=== PATIENT | male | born 1975 | race Caucasian/White ===

== ENCOUNTER 2023-06-24 11:04 | Inpatient (IN) | payer BC ==
[2023-06-24 12:01] LABS: #Basophils 0.1 thou/uL (0.0-0.2); #Eosinphils 0.5 thou/uL (0.0-0.7); #Monocytes 0.9 thou/uL (0.11-0.59); #Neutrophils 9.8 thou/uL (1.40-6.50); %Basophils 0.4 % (0.0-1.0); %Lymphocytes 14.4 % (21.0-51.0); %Monocytes 6.7 % (0.0-10.0); %Neutrophils 74.1 % (42.0-75.0); Hematocrit 43.9 % (42.0-52.0); Hemoglobin 15.4 g/dL (14.0-18.0); Mean Corpuscular HGB CONC 35.1 g/dL (32.0-36.0); Mean Corpuscular Hemoglobin 30.3 pg (27.0-31.0); Mean Corpuscular Volume 86.4 fl (78.0-98.0); Mean Platelet Volume 9.3 fL (7.4-10.4); Platelet Count 258 10x3/uL (130-400); RBC Distribution Width 12.6 % (11.5-14.5); Red Blood Cell (RBC) Count 5.08 mill/uL (4.70-6.10); White Blood Cell (WBC) Count 13.2 10x3/uL (4.8-10.8)
[2023-06-24 12:26] LABS: ALT (SGPT) 35 U/L (8-55); AST (SGOT) 23 U/L (5-34); Albumin 4.6 g/dL (3.5-5.0); Alkaline Phosphatase 75 U/L (40-110); Anion Gap 14 mmol/L (10-20); BUN (Urea Nitrogen) 10 mg/dL (8.9-20.6); Bilirubin, Total 0.5 mg/dL (0.2-1.2); Calc. Creatinine Clearance 0 mL/min (70-130); Calcium 9.9 mg/dL (7.8-10.44); Carbon Dioxide 24 mmol/L (22-29); Chloride 104 mmol/L (98-107); Estimated GFR 112; Globulin 2.8 g/dL (2.4-3.5); Glucose 97 mg/dL (70-105); Magnesium 2.3 mg/dL (1.6-2.6); Potassium 4.2 mmol/L (3.5-5.1); Protein, Total 7.4 g/dL (6.0-8.3); Sodium 138 mmol/L (136-145)
[2023-06-24] MEDS ORDERED: Senokot S 8.6-50 MG TAB PO PRN (15:19)
[2023-06-24] MEDS ORDERED: Acetaminophen 325 MG TAB PO PRN (15:19)
[2023-06-24] MEDS ORDERED: Calcium Carbonate 500 MG ChewTAB PO PRN (15:19)
[2023-06-24] MEDS ORDERED: Ondansetron PF 4 MG/2 ML Vial IVP PRN (15:19)
[2023-06-24 21:00] LABS: SARS-CoV-2 NAA Rapid Test Not Detected (NotDetected)
[2023-06-24] MEDS: Zolpidem Tartrate 5 MG TAB PO PRN (21:39)
[2023-06-24] MEDS: Atorvastatin Calcium 40 MG TAB PO SCH (21:40)
[2023-06-24] MEDS: Simethicone Chewable 80 MG TAB PO SCH (21:40)
[2023-06-24 23:46] LABS: Bacteria/HPF None Seen HPF (None Seen); Bilirubin Negative (Negative); Blood, Urine Negative (Negative); CAUTI Indications for Culture Spinal Cord Injury; Clarity Turbid (Clear); Glucose, Urine (Dipstick) Normal (Negative); Ketone, Urine Negative (Negative); Leukocyte Negative Leu/uL (Negative); Nitrite Negative (Negative); Protein, Urine (Dipstick) Negative (Neg-Trace); RBC/HPF 0-3 HPF (0-3); Specific Gravity, Urine 1.013 (1.002-1.036); Squamous Epithelial None Seen HPF (0-3); Urobilinogen Normal mg/dL (Less than 2); WBC/HPF None Seen HPF (0-3); pH, Urine 7.5 (5.0-9.0)
[2023-06-24 23:53] LABS: Sperm/HPF 1+ HPF (None Seen); Urine Culture Reflex No No
[2023-06-25 05:06] LABS: #Basophils 0.1 thou/uL (0.0-0.2); #Eosinphils 0.7 thou/uL (0.0-0.7); #Neutrophils 7.8 thou/uL (1.40-6.50); %Basophils 0.4 % (0.0-1.0); %Eosinophils 5.8 % (0.0-10.0); %Lymphocytes 18.1 % (21.0-51.0); %Monocytes 8.6 % (0.0-10.0); %Neutrophils 66.7 % (42.0-75.0); Hematocrit 42.5 % (42.0-52.0); Hemoglobin 14.6 g/dL (14.0-18.0); Mean Corpuscular HGB CONC 34.4 g/dL (32.0-36.0); Mean Corpuscular Hemoglobin 30.2 pg (27.0-31.0); Mean Platelet Volume 9.2 fL (7.4-10.4); Platelet Count 234 10x3/uL (130-400); RBC Distribution Width 12.5 % (11.5-14.5); Red Blood Cell (RBC) Count 4.83 mill/uL (4.70-6.10); White Blood Cell (WBC) Count 11.7 10x3/uL (4.8-10.8)
[2023-06-25 05:19] LABS: Hemoglobin A1c 4.8 % (4.0-6.0)
[2023-06-25 05:36] LABS: CRP (Inflammatory) Less than 0.50 mg/dL (= or < 0.5); Phosphorus 4.1 mg/dL (2.3-4.7)
[2023-06-25 05:42] LABS: ALT (SGPT) 31 U/L (8-55); AST (SGOT) 21 U/L (5-34); Albumin 4.1 g/dL (3.5-5.0); Alkaline Phosphatase 70 U/L (40-110); Anion Gap 15 mmol/L (10-20); BUN (Urea Nitrogen) 10 mg/dL (8.9-20.6); Bilirubin, Total 0.5 mg/dL (0.2-1.2); CK (CPK) 26 U/L (30-200); Calc. Creatinine Clearance 194 mL/min (70-130); Calcium 9.5 mg/dL (7.8-10.44); Carbon Dioxide 25 mmol/L (22-29); Cardiac Risk 5.3 (Less than 4.5); Chloride 105 mmol/L (98-107); Cholesterol 148 mg/dl (< 200 Desired); Estimated GFR 114; Globulin 2.8 g/dL (2.4-3.5); Glucose 96 mg/dL (70-105); HDL Cholesterol 28 mg/dL (>60 Neg Risk); LDL Cholesterol, Calculated 97 mg/dL; Magnesium 2.3 mg/dL (1.6-2.6); Potassium 3.9 mmol/L (3.5-5.1); Protein, Total 6.9 g/dL (6.0-8.3); Sodium 141 mmol/L (136-145); Triglycerides 116 mg/dL (Less than 150)
[2023-06-25] MEDS ORDERED: Lorazepam 2 MG/ML VIAL SLOW IVP SCH (08:15)
[2023-06-25] MEDS: Simethicone Chewable 80 MG TAB PO SCH ×4 (08:49→20:39)
[2023-06-25] MEDS: Aspirin 81 mg Enteric Coated Tablet PO SCH (08:49)
[2023-06-25] MEDS ORDERED: Magnevist 469MG/ML 20 ML VIAL ONE ×3 (09:43)
[2023-06-25] MEDS: Atorvastatin Calcium 40 MG TAB PO SCH (20:38)
[2023-06-25] MEDS: Zolpidem Tartrate 5 MG TAB PO PRN (20:39)
[2023-06-26 05:37] LABS: #Basophils 0.1 thou/uL (0.0-0.2); #Eosinphils 0.6 thou/uL (0.0-0.7); #Monocytes 1.1 thou/uL (0.11-0.59); #Neutrophils 8.3 thou/uL (1.40-6.50); %Basophils 0.4 % (0.0-1.0); %Eosinophils 4.9 % (0.0-10.0); %Lymphocytes 16.9 % (21.0-51.0); %Monocytes 8.9 % (0.0-10.0); %Neutrophils 68.7 % (42.0-75.0); Hematocrit 42.9 % (42.0-52.0); Hemoglobin 14.8 g/dL (14.0-18.0); Mean Corpuscular HGB CONC 34.5 g/dL (32.0-36.0); Mean Corpuscular Hemoglobin 30.2 pg (27.0-31.0); Mean Corpuscular Volume 87.6 fl (78.0-98.0); Mean Platelet Volume 9.1 fL (7.4-10.4); Platelet Count 231 10x3/uL (130-400); RBC Distribution Width 12.5 % (11.5-14.5); White Blood Cell (WBC) Count 12.1 10x3/uL (4.8-10.8)
[2023-06-26 06:03] LABS: Anion Gap 15 mmol/L (10-20); BUN (Urea Nitrogen) 10 mg/dL (8.9-20.6); Calc. Creatinine Clearance 199 mL/min (70-130); Calcium 9.5 mg/dL (7.8-10.44); Carbon Dioxide 24 mmol/L (22-29); Chloride 104 mmol/L (98-107); Estimated GFR 115; Glucose 108 mg/dL (70-105); Sodium 139 mmol/L (136-145)
[2023-06-26 10:19] LABS: Color Of CSF Supernatant COLORLESS (Colorless); Tube # 2; Unspun CSF Color COLORLESS (Colorless)
[2023-06-26 10:30] LABS: CSF, Glucose 67 mg/dl (40-70); CSF, Protein 41 mg/dL (15-40)
[2023-06-26] MEDS: Simethicone Chewable 80 MG TAB PO SCH ×2 (10:35→13:20)
[2023-06-26] MEDS: Aspirin 81 mg Enteric Coated Tablet PO SCH (10:35)
[2023-06-26 10:47] LABS: CSF RBC Count - Manual 0 /cu.mm (None Seen); CSF Source CSF; CSF WBC/NonHematics Count-Man 0 /cu.mm (0-5); Clarity Clear (Clear); Tube # 4
[2023-06-26 12:31] VITALS: BP 134/90; TEMP 97.7
[2023-06-26] MEDS ORDERED: Methocarbamol 500 MG TAB PO SCH (21:00)
[2023-06-26] MEDS ORDERED: Gabapentin 300 MG CAP PO SCH (21:00)
== END 2023-06-26 13:28 | disposition home or self-care (01) | DRG 92 ==
LOC: ERS 11:04 → SUATTDRO 11:04 → ERHOLD 15:27 → 2SE 18:29 → OBSVTOIN 06-26 10:33
PROVIDERS: ADMIT Internal Medicine; ATTEND Internal Medicine
PROC: 009U3ZX Drainage of Spinal Canal, Percutaneous Approach, Diagnostic (ICD-10-PCS; principal; 2023-06-26)
PROC: B01B1ZZ Fluoroscopy of Spinal Cord using Low Osmolar Contrast (ICD-10-PCS; 2023-06-26)
DX: R20.2 Paresthesia of skin (principal); C71.9 Malignant neoplasm of brain, unspecified; R29.898 Other symptoms and signs involving the musculoskeletal system; R25.2 Cramp and spasm; D72.829 Elevated white blood cell count, unspecified; E53.8 Deficiency of other specified B group vitamins; E78.5 Hyperlipidemia, unspecified; K22.0 Achalasia of cardia; E55.9 Vitamin D deficiency, unspecified; Z20.822 Contact with and (suspected) exposure to COVID-19; Z79.899 Other long term (current) drug therapy
CPT/HCPCS: 36415; 62270; 70450; 72156; 72157; 72158; 80048; 80053; 80061; 81001; 82550; 82945; 83036; 83605; 83735; 84100; 84145; 84157; 84443; 85025; 86140; 87040; 89051; 93005; 93306; 94760; A9579; J2060

== ENCOUNTER 2024-02-26 06:34 | Day surgery (SDC) | payer BC ==
[2024-02-24 14:16] VITALS: BMI 29.2
[2024-02-26] MEDS ORDERED: PROPOFOL 20 ML ONE (08:25)
[2024-02-26] MEDS ORDERED: fentaNYL 50 mcg/mL 1 mL Vial ONE (08:25)
[2024-02-26] MEDS ORDERED: Lidocaine 2% PF 5 ML VIAL ONE (08:25)
== END 2024-02-26 09:40 | disposition home or self-care (01) ==
LOC: SDC 06:34
PROVIDERS: ATTEND Internal Medicine Gastroenterology
PROC: 0DJ08ZZ Inspection of Upper Intestinal Tract, Via Natural or Artificial Opening Endoscopic (ICD-10-PCS; principal; 2024-02-26)
PROC: 0DJD8ZZ Inspection of Lower Intestinal Tract, Via Natural or Artificial Opening Endoscopic (ICD-10-PCS; principal; 2024-02-26)
DX: Z12.11 Encounter for screening for malignant neoplasm of colon (principal); G61.81 Chronic inflammatory demyelinating polyneuritis; K76.0 Fatty (change of) liver, not elsewhere classified; G61.0 Guillain-Barre syndrome; R13.10 Dysphagia, unspecified; Z79.899 Other long term (current) drug therapy; Z90.49 Acquired absence of other specified parts of digestive tract; Z98.890 Other specified postprocedural states
CPT/HCPCS: J2001; J2704; J3010